=== PATIENT | female | born 1965 | race Caucasian/White ===

== ENCOUNTER → 2018-10-23 | Outpatient (CLI) | payer OTHER ==
--- NOTE | 2018-10-23 16:38 | Diagnostic Imaging Report ---
PATIENT HISTORY: ACUTE KNEE PAIN. TECHNIQUE: Three views of the left knee COMPARISON: None FINDINGS: No acute fracture or dislocation is seen in the left knee. Alignment appears normal. There are severe degenerative changes in the medial compartment and the patellofemoral compartment. There is a moderate left knee joint effusion. There is calcification along the medial collateral ligament which may be from remote trauma. There is a superior patellar enthesophyte. IMPRESSION: 1. 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 No acute fracture is seen. 2. Moderate left knee joint effusion. Dictated by: Dictated on workstation # [id number]
== END ==
LOC: RAD FS 16:21
PROVIDERS: ATTEND Family Medicine
DX: M17.12 Unilateral primary osteoarthritis, left knee (principal)
CPT/HCPCS: 73562